=== PATIENT | male | born 1955 | race Caucasian/White ===

== ENCOUNTER 2018-05-25 09:17 | Outpatient (RCR) | payer BC, MEDICARE ==
[~2018-05-25 09:17] MED LIST: ALTEPLASE RECOMB 2 MG VIAL IVP PRN; DIALYSIS ACETAMINOPHEN 325 MG PO PRN; LOPERAMIDE HCL 2 MG CAP PO PRN; PROMETHAZINE HCL 25 MG TAB PO PRN; [UNRECOGNIZED DRUG - OTHER] IVP PRN; diphenhydr DIALYSIS 50 MG/ML IVP PRN
[2018-05-25] MEDS: HEPARIN (PORCINE) 1000 UNIT/ML (DIALYSIS) IVP PRN ×2 (13:41)
[2018-05-28] MEDS: HEPARIN (PORCINE) 1000 UNIT/ML (DIALYSIS) IVP PRN ×2 (13:27)
[2018-05-30] MEDS: HEPARIN (PORCINE) 1000 UNIT/ML (DIALYSIS) IVP PRN ×2 (10:52)
[2018-06-29 08:09] LABS: PLATELET COUNT, AUTOMATED 144 K/uL (150-450)
== END 2018-12-01 ==
LOC: DIAL 09:17
PROVIDERS: ATTEND Internal Medicine Nephrology
DX: N18.6 End stage renal disease (principal); C90.00 Multiple myeloma not having achieved remission; Z99.2 Dependence on renal dialysis
CPT/HCPCS: 82040; 82247; 82310; 82374; 82435; 82565; 82947; 84075; 84132; 84155; 84295; 84450; 84460; 84520; 85025; 90999